=== PATIENT | male | born 1975 | race Caucasian/White ===

== ENCOUNTER 2017-11-16 17:08 | Emergency (ER) | payer MEDICAID ==
[~2017-11-16] VITALS: Ht 177.8 cm; Wt 111.6 kg
[2017-11-16 17:11] VITALS: Ht 177.8 cm; Wt 111.6 kg
[2017-11-16 19:04] LABS: CALCIUM 8.7 mg/dL (8.5-10.1); CARBON DIOXIDE 25.5 mmol/L (21-32); CHLORIDE SERUM 101 mmol/L (98-107); CREATININE SERUM 0.9 mg/dL (0.7-1.3); GFR1 > 60 mL/min; GLUCOSE SERUM 151 mg/dL (74-106); POTASSIUM SERUM 3.9 mmol/L (3.5-5.1); SODIUM SERUM 138 mmol/L (136-145)
[2017-11-16 19:06] LABS: BASOPHIL % 0.6 % (0-2); PLATELET COUNT 254 x10^3mcL (130-400); RED CELL DISTRIBUTION WIDTH 13.4 % (11.5-14.5)
[2017-11-16 19:09] LABS: ALBUMIN 3.5 g/dL (3.4-5.0); ALKALINE PHOSPHATASE 94 U/L (46-116); ALT/SGPT 47 U/L (16-63); AST/SGOT 22 U/L (15-37); BILIRUBIN TOTAL 0.3 mg/dL (0.20-1.00)
[2017-11-16 21:05] VITALS: BP 125/79
== END 2017-11-16 21:05 | disposition home or self-care (01) ==
LOC: ED 17:08
PROVIDERS: Emergency Medicine
DX: R07.89 Other chest pain (principal)
CPT/HCPCS: 83880; 85378; J3490

== ENCOUNTER 2018-09-03 01:02 | Emergency (ER) | payer SELFPAY ==
[~2018-09-03] VITALS: Ht 167.6 cm; Wt 108.0 kg
[2018-09-03 01:09] VITALS: Ht 167.6 cm; Wt 108.0 kg
[2018-09-03 01:59] LABS: BASOPHIL % 0.5 % (0-2); PLATELET COUNT 207 x10^3mcL (130-400); RED CELL DISTRIBUTION WIDTH 13.2 % (11.5-14.5)
[2018-09-03 02:14] LABS: CARBON DIOXIDE 27.3 mmol/L (21-32); CHLORIDE SERUM 100 mmol/L (98-107); CREATININE SERUM 0.9 mg/dL (0.7-1.3); GFR1 > 60 mL/min; GLUCOSE SERUM 349 mg/dL (74-106); POTASSIUM SERUM 3.8 mmol/L (3.5-5.1); SODIUM SERUM 134 mmol/L (136-145)
[2018-09-03 02:19] LABS: ALBUMIN 3.4 g/dL (3.4-5.0); ALKALINE PHOSPHATASE 128 U/L (46-116); ALT/SGPT 32 U/L (16-63); AST/SGOT 18 U/L (15-37); BILIRUBIN TOTAL 0.36 mg/dL (0.20-1.00); TOTAL PROTEIN, SERUM 6.9 g/dL (6.4-8.2)
[2018-09-03 02:21] LABS: AMPHETAMINE QUAL UR NONE DETECTED (See below)
[2018-09-03 05:04] LABS: CHOLESTEROL/HDL RATIO 5.1
[2018-09-03 05:36] VITALS: BP 124/73
== END 2018-09-03 05:36 | disposition home or self-care (01) ==
LOC: ED 01:02
PROVIDERS: Emergency Medicine
DX: E11.65 Type 2 diabetes mellitus with hyperglycemia (principal); R07.89 Other chest pain
CPT/HCPCS: J1815; J1885; Q0092

== ENCOUNTER 2019-08-07 02:35 | Inpatient (IN) | payer MEDICAID ==
[~2019-08-07] VITALS: Ht 167.6 cm; Wt 101.2 kg
[2019-08-07 05:37] LABS: CALCIUM 8.5 mg/dL (8.5-10.1); CARBON DIOXIDE 30.5 mmol/L (21-32); CHLORIDE SERUM 101 mmol/L (98-107); CREATININE SERUM 0.8 mg/dL (0.7-1.3); GFR1 > 60 mL/min; GLUCOSE SERUM 258 mg/dL (74-106); POTASSIUM SERUM 3.9 mmol/L (3.5-5.1); SODIUM SERUM 139 mmol/L (136-145)
[2019-08-07 05:42] LABS: ALBUMIN 3.8 g/dL (3.4-5.0); ALKALINE PHOSPHATASE 120 U/L (46-116); ALT/SGPT 33 U/L (16-63); AMYLASE 69 U/L (25-115); AST/SGOT 16 U/L (15-37); BILIRUBIN TOTAL 0.5 mg/dL (0.20-1.00); LIPASE 156 IU/L (73-393); TOTAL PROTEIN, SERUM 7.5 g/dL (6.4-8.2)
[2019-08-07 06:01] LABS: BASOPHIL % 0.2 % (0-2); PLATELET COUNT 258 x10^3mcL (130-400); RED CELL DISTRIBUTION WIDTH 13.4 % (11.5-14.5)
[2019-08-07] MEDS ORDERED: METFORMIN HYDR500 M1 PO (15:28)
[2019-08-07 16:23] VITALS: BP 150/76
[2019-08-07 19:10] LABS: UA SPECIFIC GRAVITY <=1.005 (1.005-1.035); microscopic required? YES; urine erythrocyte NEGATIVE (NEGATIVE)
[2019-08-07 19:31] LABS: AMPHETAMINE QUAL UR NONE DETECTED (See below)
[2019-08-07 21:30] VITALS: BP 127/58
[2019-08-08 05:05] VITALS: BP 122/49
[2019-08-08 06:00] VITALS: BP 104/63
[2019-08-08 06:27] LABS: BASOPHIL % 0.1 % (0-2); PLATELET COUNT 205 x10^3mcL (130-400); RED CELL DISTRIBUTION WIDTH 13.7 % (11.5-14.5)
[2019-08-08 06:44] VITALS: Ht 167.6 cm; Wt 101.2 kg
[2019-08-08 07:00] LABS: CALCIUM 7.9 mg/dL (8.5-10.1); CARBON DIOXIDE 24.6 mmol/L (21-32); CHLORIDE SERUM 102 mmol/L (98-107); CREATININE SERUM 0.9 mg/dL (0.7-1.3); GFR1 > 60 mL/min; GLUCOSE SERUM 248 mg/dL (74-106); PHOSPHOROUS 3.3 mg/dL (2.5-4.9); SODIUM SERUM 135 mmol/L (136-145)
[2019-08-08 08:07] VITALS: BP 101/60
[2019-08-08 12:11] VITALS: BP 105/62
[2019-08-08 16:24] VITALS: BP 121/71
[2019-08-08 20:40] VITALS: BP 123/70
[2019-08-09 06:01] VITALS: BP 118/66
[2019-08-09 06:24] LABS: BASOPHIL % 0.2 % (0-2); PLATELET COUNT 179 x10^3mcL (130-400); RED CELL DISTRIBUTION WIDTH 13.3 % (11.5-14.5)
[2019-08-09 06:40] LABS: CALCIUM 7.4 mg/dL (8.5-10.1); CARBON DIOXIDE 24.4 mmol/L (21-32); CHLORIDE SERUM 101 mmol/L (98-107); CREATININE SERUM 0.9 mg/dL (0.7-1.3); GFR1 > 60 mL/min; GLUCOSE SERUM 168 mg/dL (74-106); MAGNESIUM 1.8 mg/dL (1.8-2.4); PHOSPHOROUS 2.1 mg/dL (2.5-4.9); POTASSIUM SERUM 3.3 mmol/L (3.5-5.1); SODIUM SERUM 135 mmol/L (136-145)
[2019-08-09 09:15] VITALS: BP 136/71
[2019-08-09 17:14] VITALS: BP 148/84
[2019-08-09 20:26] VITALS: BP 131/69
[2019-08-10 06:08] VITALS: BP 147/72
[2019-08-10 06:29] LABS: BASOPHIL % 0.5 % (0-2); PLATELET COUNT 199 x10^3mcL (130-400); RED CELL DISTRIBUTION WIDTH 13.4 % (11.5-14.5)
[2019-08-10 06:40] LABS: CALCIUM 7.5 mg/dL (8.5-10.1); CARBON DIOXIDE 25.8 mmol/L (21-32); CHLORIDE SERUM 102 mmol/L (98-107); CREATININE SERUM 0.8 mg/dL (0.7-1.3); GFR1 > 60 mL/min; GLUCOSE SERUM 124 mg/dL (74-106); POTASSIUM SERUM 3.5 mmol/L (3.5-5.1); SODIUM SERUM 135 mmol/L (136-145)
[2019-08-10] MEDS ORDERED: CIPRO500 MG PO (09:05)
[2019-08-10] MEDS ORDERED: FLA500 PO (09:05)
[2019-08-10] MEDS ORDERED: TRAMADOL HCL50 MG PO (09:06)
[2019-08-10] MEDS ORDERED: MOT600 PO (09:09)
[2019-08-10 09:25] VITALS: BP 144/87
[2019-08-10 12:34] VITALS: BP 144/87
== END 2019-08-10 14:14 | disposition home or self-care (01) | DRG 710 ==
LOC: ED 02:35 → MU 15:12
PROVIDERS: Emergency Medicine; Family Medicine Addiction Medicine; Internal Medicine; ADMIT General Practice
PROC: 0DBH4ZZ Excision of Cecum, Percutaneous Endoscopic Approach (ICD-10-PCS; 2019-08-07)
PROC: 3E1M38Z Irrigation of Peritoneal Cavity using Irrigating Substance, Percutaneous Approach (ICD-10-PCS; 2019-08-07)
PROC: 0DTJ4ZZ Resection of Appendix, Percutaneous Endoscopic Approach (ICD-10-PCS; principal; 2019-08-07 19:00)
DX: A41.9 Sepsis, unspecified organism (principal); K35.33 Acute appendicitis with perforation, localized peritonitis, and gangrene, with abscess; E11.65 Type 2 diabetes mellitus with hyperglycemia; K66.0 Peritoneal adhesions (postprocedural) (postinfection); F17.210 Nicotine dependence, cigarettes, uncomplicated; Z68.36 Body mass index [BMI] 36.0-36.9, adult; Z79.84 Long term (current) use of oral hypoglycemic drugs
CPT/HCPCS: 82962; 90658; 90732; G0378; J0330; J0696; J1170; J1815; J1885; J2001; J2405; J2543; J2704; J2710; J3010; J3490; J7030; J7060; J7120; Q9966; Q9967